=== PATIENT | female | born 1975 | race Hispanic/Latino ===

== ENCOUNTER → 2024-11-13 14:52 | Outpatient (CLI) | payer BC, SELFPAY ==
--- NOTE | 2024-11-13 15:27 | EKG_ITS ---
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
[2024-11-13 15:38] LABS: Add Manual Diff / Slide Review NO; Basophils Absolute Auto 0 /uL (0-100); Basophils Percent Auto 0.6 % (0-2); Eosinophils Absolute Auto 100 /uL (0-450); Eosinophils Percent Auto 1.7 % (2-4); Hematocrit 40.3 % (36-46); Hemoglobin 13.2 g/dL (12.0-16.0); Lymphocytes Absolute Auto 3000 /uL (1100-4500); Lymphocytes Percent Auto 43.4 % (25-40); Mean Corpuscular HGB Conc 32.7 % (30-36); Mean Corpuscular Hemoglobin 29.8 PG (26-34); Mean Corpuscular Volume 91.2 fL (80-100); Monocytes Absolute Auto 600 /uL (0-900); Monocytes Percent Auto 7.9 % (3-14); Neutrophils Absolute Auto 3200 /uL (1500-7000); Neutrophils Percent Auto 46.4 % (50-75); Platelet Count 274 X10^3/uL (150-400); Red Blood Cell Count 4.41 X10^6/uL (4.0-5.2); Red Cell Distribution Width 13.7 % (11.6-14.8)
[2024-11-13 15:48] LABS: Hemoglobin A1C% w Est Avg Glu 5.2 % (4.0-6.0)
[2024-11-13 16:03] LABS: Albumin 4.8 g/dL (3.5-5.0); BUN Creatinine Ratio 31.3 (6-22); Blood Urea Nitrogen 20 mg/dL (7-17); Calcium 9.9 mg/dL (8.4-10.2); Carbon Dioxide 25 mmol/L (22-32); Chloride 104 mmol/L (98-107); Estimated Glomerular Filt Rate > 60 mL/min (>60); Glucose 87 mg/dL (70-100); HEMOLYSIS < 15 (0-50); Potassium 4.1 mmol/L (3.4-5.1); Sodium 139 mmol/L (137-145)
[2024-11-13 16:10] LABS: Prealbumin 37.1 mg/dL (17.6-36.0)
[2024-11-13 16:24] LABS: Vitamin D 25 Hydroxy (D3) 39.7 ng/mL (30.0-100.0)
== END ==
PROVIDERS: PCP Family Medicine; Referring Provider Orthopaedic Surgery Adult Reconstructive Orthopaedic Surgery; Visit Provider Orthopaedic Surgery Adult Reconstructive Orthopaedic Surgery
DX: Z01.818 Encounter for other preprocedural examination (principal); R77.0 Abnormality of albumin; E55.9 Vitamin D deficiency, unspecified; R73.9 Hyperglycemia, unspecified; Z01.812 Encounter for preprocedural laboratory examination
CPT/HCPCS: 36415; 80048; 82040; 82306; 83036; 84134; 85025; 93005

== ENCOUNTER 2025-01-05 11:52 | Day surgery (SDC) | payer OTHER, SELFPAY ==
[2025-01-02 12:03] VITALS: BMI 33.5
[2025-01-05] VITALS (17 sets, daily range): BP systolic 90–139; BP diastolic 45–84; PULSE 74–107; RESP 12–25; TEMP 36–36.6; O2SAT 14–100; BMI 28.6; BMI 33.5
--- NOTE | 2025-01-05 06:00 | DI.RAD.S_ITS ---
PROCEDURE: XR KNEE RT 1TO2V INDICATIONS: tka TECHNIQUE: 2 view(s) of the knee acquired. COMPARISON: [facility], CR, XR KNEE 3 VIEWS RIGHT, 08/05/2024, 4:05. FINDINGS: Bones: Knee arthroplasty in expected position. Soft tissues: Soft tissue edema and gas IMPRESSION: Expected post-operative appearance of a knee arthroplasty. Dictated by: Dat Bermudez M.D. on 01/06/2025 at 13:52 Approved by: Dat Bermudez M.D. on 01/06/2025 at 13:52
[2025-01-05] MEDS: LACTATED RINGERS 1,000 ML 42 ML IV ×2 (12:33→15:54)
[2025-01-05] MEDS: ACETAMINOPHEN 325 MG TABLET 975 MG PO (12:33)
[2025-01-05] MEDS: MELOXICAM 7.5 MG TABLET 15 MG PO (12:33)
--- NOTE | 2025-01-05 13:37 | PM.PREOP ---
Pre-operative Note Interval Note History & Physical reviewed/Exam performed by Physician: Yes Changes to H&P: No
[2025-01-05] MEDS: CEFAZOLIN 2 GM/100 ML PREMIX 100 ML IV ×2 (13:50→22:16)
--- NOTE | 2025-01-05 14:14 | SUR.OPER ---
Supine on padded OR bed. Pillow under head, arms secured on padded armboards <90 degree abduction. Safety belt across torso. Non-operative leg secured with tape over blanket over lower leg. Operative leg secured in DeMayo/Edward/Nathe positioner. Foam padded brace at thigh of operative leg.
[2025-01-05] MEDS: TRANEXAMIC ACID 1,000 MG VIAL 2000 MG INJ ×2 (14:40→15:31)
[2025-01-05] MEDS: ROPIVACAINE/EPI/CLONIDINE/KET 50 ML SYRINGE INJ (14:40)
--- NOTE | 2025-01-05 15:47 | P.OP_ITS ---
Operative Date/Time/Diagnoses Date of procedure: 01/05/25 Pre-op diagnosis: Right knee osteoarthritis secondary to recurrent pa tellofemoral dislocations Post-op diagnosis: same Procedure & Clinicians Procedure: Right total knee arthroplasty Same procedure as scheduled: Yes Surgeon: Roland Mina Cherry Cutter: Deanna Nguyen Anesthesia Type: Spinal, Sedation and Local Operative Notes Estimated Blood Loss (mL): 300 Procedure in detail: Right Gap-Balanced Rony Persona Medial-Congruent Primary Total Knee Arthroplasty Implants: * Size 10 narrow PPS Cruciate Retaining Femoral Component * Size E OsseoTi Tibial Component * Size 10 Medial Congruent Polyethylene Insert * 32 mm cemented Patellar button Procedure Summary: This 49-year-old female patient has a history of numerous patellofemoral dislocations since her youth beginning at age 14. She had severe patellofemoral arthritis and had had multiple opinions from prior surgeons prior to evaluation by me. Recommendations for her had included a tibial tubercle transfer and patellofemoral arthroplasty. I considered patellofemoral arthroplasty in her case however on review of her MRI she had subchondral edema extending down into the tibial plateau both centrally and posteromedially which I felt represented the onset of arthritic changes in her tibiofemoral portion of her knee joint. I therefore recommended total knee arthroplasty which would address the tibiofemoral articulation in addition to the patellofemoral articulation, with the goal being that this would be a definitive surgery and that she would not require additional surgery on this knee which I anticipated would be an inevitability if she had a patellofemoral resurfacing arthroplasty given the subchondral edema already present in the portion of the knee which would be left intact by that surgery. 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 When I made the anterior cut for the 4 in 1 block it barely resected any bone from the anterior cortex but if I had gone down a size I would have notched. On the patellar side my typical practice is to leave the patella unresurfaced however her patella had severe erosive changes, particularly in the inferior aspect of the patella, and had completely lost the convexity of the patella such that there was no protrusion which could articulate with the trochlea of the femoral component. I therefore resurfaced her patella to improve tracking. Given her young age of 49 years I strongly desired to obtain biologic fixation for penitentiary stability of her tibial and femoral components. I prepared a small batch of cement for her patellar component and cemented that in isolation. Her overall alignment was valgus and a posterior lateral release was required to balance the medial and lateral compartments in extension. The tensioner balanced at 7? of external rotation at 90? of flexion and spacer blocks were used to assess the extension and flexion gaps, with a 10 mm block being tight in both prior to the 4 in 1 cut. At the conclusion of the procedure the patella tracked appropriately in the trochlear groove. The patient has been very hesitant to move her knee in the lead up to this surgery and because of this I did not use a tourniquet during today's procedure as I did not want tourniquet associated pain to cause her to be hesitant to move her knee. I also utilized a mid vastus arthrotomy for the same reason. She is [place]-speaking only and I am working to ensure that she will be able to work with a physical therapist that speaks [place] for her postoperative recovery given her movement hesitancy in the lead up to surgery. Procedure in Detail: This patient was seen preoperatively and evaluated for knee pain which was refractory to numerous nonoperative treatment modalities. Their pain correlated with radiographic changes demonstrating significant degeneration in the knee joint. The risks and benefits of continued nonoperative management versus operative management were discussed at length and all of the patient?s questions were answered. Additional educational materials providing further details beyond our discussion in clinic were provided via a publicly available patient education video which included the incidence of medical complications associated with total knee arthroplasty, reasons for revision following total knee arthroplasty, and patient satisfaction rates following total knee arthroplasty. That video can be accessed at [email or web address] . With this understanding of the risks inherent to the procedure, the patient elected to move forward with operative management. Following preoperative optimization, the patient was scheduled for surgery. The patient was met in the preoperative holding area the day of the procedure and all questions were answered. The patient?s nares were swabbed with betadine in order to decolonize them from MRSA. Informed consent was signed and the right limb was marked with indelible ink.? The patient was brought back to the operating room where anesthesia was induced. The patient was transferred to the operating table and all bony prominences were padded. The operative site was prepped and draped in the usual sterile fashion. A second prep stick was utilized following drape placement. The incision was marked corresponding to the medial aspect of the tibial tubercle and the patella. Ioban was wrapped circumferentially around the knee. Prior to incision, tranexamic acid and cefazolin were administered. Templating images were displayed. A timeout procedure was performed verifying the patient?s identity, medical comorbidities, allergies, relevant medications, anesthesia type and the surgical plan. All present were in agreement. The assistance of a physician records management assistant was required for positioning, room setup, soft tissue retraction and wound closure. Without this assistance, the procedure would have been significantly more challenging and time consuming.?? The tourniquet was inflated prior to incision. I made an anterior incision over the knee, dissected through the subcutaneous tissues and identified the lateral border of the VMO. Medial and lateral soft tissue flaps were developed. A medial parapatellar arthrotomy was performed ensuring that adequate capsular tissue would remain for closure at the conclusion of the procedure. The hip was brought into extension and the medial soft tissues were released off the joint line of the tibia. Tissue overlying the distal anterior femur was released to allow for later assessment for anterior notching but left in place. A portion of the retropatellar fat pad was excised while protecting the patellar tendon. The patella was everted. I noted that it was essentially completely flat and elected to resurface it based on this. I measured the thickness at 24 mm and anticipated using a 32 mm button so I positioned it in an everted position and made a saw cut which left a thickness of 15 mm so as to avoid over stuffing. I prepped the patellar button. The patella was released from its everted position.?? I flexed the knee to 90 degrees and placed retractors to allow access to the notch. An opening reamer was used to gain access to the femoral canal and an intramedullary kristopher was introduced into the canal. Diaphyseal fit was obtained in order to allow a distal femoral resection at 5 degrees relative to the anatomic axis, thereby aiming to achieve mechanical alignment of the eventual implant. A +1 resection was planned and assessed using an lele wing. I then made the cut using a sagittal saw. This provided additional access to the femoral notch. The ACL and PCL were excised. Retractors were placed on the lateral and medial tibia. I hyperflexed the knee while externally rotating it to sublux the tibia anteriorly. I placed a PCL retractor posteriorly and used this to provide additional anterior subluxation. The remainder of the PCL root was released. An intramedullary reamer was used in the ACL footprint to provide access to the tibial canal. An extramedullary guide was positioned to allow a resection perpendicular to the anatomic and mechanical axes of the tibia, thereby aiming to achieve mechanical alignment of the eventual implant. A +4 resection off the medial tibia was planned and the tibial cutting jig was pinned in place after I had removed a small amount of remaining cartilage in the medial compartment so as to ensure that I would saw down to subchondral bone. I evaluated the cut depth, varus-valgus alignment and slope of the planned tibial resection and deemed them satisfactory. I cut the tibia with a sagittal saw while using retractors to protect the MCL, patellar tendon, and posterolateral structures.? The knee was repositioned in extension and the Fuzion soft tissue balancing gauge was introduced. This demonstrated that the lateral side was excessively tight relative to the medial side. I therefore used a lamina table operator with the knee in extension to tension the posterolateral capsule and dissected out the posterolateral capsule from the popliteus using a tonsil and cut it sharply. This resulted in improved gap symmetry in extension. The medial and lateral compartments were now symmetric. I moved the knee into 90 degrees of flexion, and the Fuzion device was recalibrated by removing a 9 mm liset to allow assessment of the flexion gap. The Fuzion was placed perpendicular to the resected surface of the tibia and the resected surface of the distal femur. Traction was applied. This externally rotated the femur to 7 degrees. Pins were placed. Appropriate sizing was determined and a 4-in-1 block was placed. This was double checked using the Fuzion device to ensure that it would open to an equal distance as the extension gap when the same amount of force was applied. The Fuzion block was also used to assess flexion gap symmetry. An lele wing was used to ensure there would be no anterior notching. Retractors were placed to protect the soft tissues during resection. Captured cuts were performed with a sagittal saw for the anterior and posterior femur as well as the corresponding chamfers.? Trial components were placed and the construct was assessed. Range of motion was assessed by ensuring the knee could achieve full extension and assessing maximum passive knee flexion by elevating the femur and allowing the heel to passively fall towards the buttock. Gap symmetry was assessed by stressing the medial and lateral compartments in both extension and flexion. Laxity was assessed in both extension and flexion and the polyethylene trial was adjusted with shims as necessary. Patellar tracking was assessed with knee flexion. Once satisfied with the construct, I moved forward with implant insertion. Lug holes were drilled in the femur and the tibia was prepped ensuring appropriate sizing and rotation relative to the tibial tubercle.?? The bony ends were irrigated. I impacted the tibial component into place. Cement was removed. The tibia was reduced underneath the femur. I placed the femoral component as well as the intended polyethylene trial. I brought the knee into extension and manually pressurized the construct. I had a small batch of cement prepared and placed this onto the patella as well as a patellar button. I pressurized this into place. I allowed this to dry. The knee was bathed in a dilute mixture of betadine and peroxide. A mixture of Ropivacaine, Epinephrine, Clonidine and Toradol was infiltrated throughout the soft tissues into structures including the VMO, patellar tendon, quadriceps tendon, MCL and femoral periosteum. A low adductor canal block was also performed using this mixture unless one had been placed preoperatively by anesthesia. The knee was copiously irrigated with pulse lavage. Once cement had been allowed to dry the knee was again trialed. Range of motion was assessed by ensuring the knee could achieve full extension and assessing maximum passive knee flexion by elevating the femur and allowing the heel to passively fall towards the buttock. Gap symme try was assessed by stressing the medial and lateral compartments in both extension and flexion. Laxity was assessed in both extension and flexion and the polyethylene trial was adjusted with shims as necessary. Patellar tracking was assessed with knee flexion. The tourniquet was let down and the polyethylene trial was removed. I inspected the knee inspected for excess cement and any residual bleeding. Once hemostasis was achieved I inserted the final polyethylene and ensured appropriate engagement of the dovetail locking mechanism.?? The arthrotomy was closed with absorbable interrupted suture ensuring that this extended to the top of the arthrotomy. This was backed up with running barbed suture throughout the arthrotomy. The skin was closed with 2-0 and 3-0 sutures. Surgical glue was applied and a soft dressing was placed.?The sponge, instrument and needle counts were reported as being correct at the end of the case.??No obvious complications occurred. The patient was transferred from the operating table back to a stretcher. The patient emerged from anesthesia without difficulty and was taken to the PACU in a stable condition.? Plan for aftercare: * Weightbearing as tolerated * Mobilization as soon as the patient has recovered from anesthesia. If physical therapists are unavailable at the time the patient is ready to ambulate, then nursing staff should help patient ambulate * Aspirin 81 twice per day for DVT prophylaxis * Multimodal pain regimen with no IV opioids ordered * Anticipate discharge home tomorrow * Follow up at [facility] in 2 weeks * Detailed postoperative instructions available at [email or web address]
[2025-01-05] MEDS: ONDANSETRON 4 MG/2 ML INJ IV (16:21)
[2025-01-05] MEDS: hydrOXYzine 50 MG/ML INJ IM (16:21)
[2025-01-05] MEDS: HYDROMORPHONE 1 MG INJ IV ×2 (16:22→16:33)
[2025-01-05] MEDS: OXYCODONE IR 5 MG TABLET PO ×2 (16:27→20:48)
[2025-01-05] MEDS: LACTATED RINGERS 1,000 ML 100 ML IV (17:29)
[2025-01-05] MEDS: ACETAMINOPHEN 325 MG TABLET 650 MG PO ×2 (18:00→22:43)
[2025-01-05] MEDS: methocarbamoL 500 MG TABLET 1000 MG PO (18:22)
--- NOTE | 2025-01-05 18:28 | PC.NURSE ---
Patient arrives from PACU at about 1715 this evening. She is alert, and grimacing and reports pain is severe. She also appears lethargic and falls asleep intermittently. With movement or when awakens she is in tears crying saying mucho dolor or alot of pain. She is given scheduled pain medications and MD notified to give patient robaxin early this evening. Patient 02 sats dropping to 70's in PACU and for now holding further narcotics. Patient appears to be slightly anxious as well. Received one time order for dose of 5mg valium. Upon reassessment patient is sleeping quietly VSS. Daughter is driving from [facility]. and will plan to review admission assessment with patient when she awakens. Continuous monitoring.
[2025-01-05] MEDS: DOCUSATE 100 MG CAPSULE PO (20:47)
[2025-01-05] MEDS: diazePAM 5 MG TABLET PO (20:48)
[2025-01-05] MEDS: IBUPROFEN 600 MG TABLET PO (20:49)
[2025-01-05] MEDS: ASPIRIN EC 81 MG TABLET PO (20:49)
[2025-01-05] MEDS: diphenhydrAMINE 25 MG TABLET PO (22:16)
[2025-01-06 00:15] VITALS: BP 117/68; PULSE 81; RESP 16; TEMP 36.3; O2SAT 98
[2025-01-06] MEDS: OXYCODONE IR 5 MG TABLET PO ×6 (01:56→20:42)
[2025-01-06] MEDS: IBUPROFEN 600 MG TABLET PO ×4 (01:57→20:42)
[2025-01-06 04:30] VITALS: BP 106/62; PULSE 78; RESP 18; TEMP 36.4; O2SAT 98
[2025-01-06] MEDS: ACETAMINOPHEN 325 MG TABLET 650 MG PO ×4 (05:19→23:02)
[2025-01-06] MEDS: CEFAZOLIN 2 GM/100 ML PREMIX 100 ML IV (05:19)
[2025-01-06 07:40] LABS: Hemoglobin 10.1 g/dL (12.0-16.0)
[2025-01-06 08:00] VITALS: BP 105/63; PULSE 81; RESP 18; TEMP 36.3
--- NOTE | 2025-01-06 08:09 | PM.DS.1 ---
History of Present Illness History of Present Illness Date Patient Seen: 01/06/25 Time Patient Seen: 08:09 Chief complaint: Right Total Knee Arthroplasty Narrative: Operative Date/Time/Diagnoses Date of procedure: 01/05/25 Pre-op diagnosis: Right knee osteoarthritis secondary to recurrent patellofemoral dislocations Post-op diagnosis: same Procedure & Clinicians Procedure: Right total knee arthroplasty Same procedure as scheduled: Yes Surgeon: Roland Mina Continuous Process Coffee Roaster: Deanna Nguyen Anesthesia Type: Spinal, Sedation and Local Operative Notes Estimated Blood Loss (mL): 300 Procedure in detail: Right Gap-Balanced Rony Persona Medial-Congruent Primary Total Knee Arthroplasty Implants: Size 10 narrow PPS Cruciate Retaining Femoral Component Size E OsseoTi Tibial Component Size 10 Medial Congruent Polyethylene Insert 32 mm cemented Patellar button Discharge Providers Provider Discharge Date: 01/06/25 Primary care physician: Gala Higgins MD Consults: 01/05/25 06:00 Consult to Anesthesiology Routine Comment: Consulting Provider: Anesthesiologist Reason for consultation: Regional block for post operative pain control 01/05/25 17:18 Consult to Discharge Planning Routine Comment: Consult to Occupational Therapy Evaluate & Treat Comment: Physician Instructions: Evaluate and treat Consult to Physical Therapy Evaluate & Treat Comment: Physician Instructions: postop TKA protocol 01/05/25 20:37 Consult to CIGAR WRAPPER - Neurophysiological Technician Routine Comment: Neurophysiological Technician Consult needed for:: Other reason (Comment) Discharge provider: Deanna Nguyen PA-C Summary Hospital Course Discharge Diagnosis: Right knee osteoarthritis secondary to recurrent patellofemoral dislocations, s/p right total knee arthroplasty with patellar resurfacing Hospital Course: Ms Aviles is Macedonian-speaking only and was interviewed and examined with the help of an audio third-democrat translating service. Her postoperative course was remarkable for difficulty with pain management. On the morning of POD# 1, she was feeling well and expressed a desire to discharge home if better pain control was achieved. She was eating and voiding without difficulty. She had been out of bed to the commode twice during the night and had put very little weight on her right leg. She had not yet worked with PT. Exam Vital Signs (past 8 hours): - 01/06/25 00:15 01/06/25 04:30 Temperature 97.3 F L 97.5 F L Pulse Rate 81 78 Respiratory Rate 16 18 Blood Pressure 117/68 106/62 Pulse Oximetry 98 98 Oxygen Flow Rate 0 0 Oxygen Delivery Method Nasal Cannula Oxygen Flow Rate 0 Narrative Exam Narrative: 5/5 hip flexors, 4/5 quadriceps and hamstrings, 5/5 PF, DF, EHL on right. Sensation to light touch intact throughout RLE, calf soft and compressible. ELIZABETH over Aquacel is CDI. Objective Labs 01/06/25 07:10 Labs: Laboratory Results - last 24 hr 01/06/25 07:10 Hgb 10.1 L Hct 30.0 L PFSH Medical History (Updated 01/02/25 @ 13:21 by Cassie Drew, RN) Patient denies medical problems Osteoarthritis Surgical History (Updated 01/02/25 @ 13:21 by Cassie Drew RN) History of Hx of cholecystectomy Social History household members: children Smoking Status: Never smoker alcohol intake: former Discharge Assessment & Plan Assessment and Plan Assessment: Right knee osteoarthritis secondary to recurrent patellofemoral dislocations, s/p right total knee arthroplasty with patellar resurfacing Plan of Treatment: Discussed w/ pt that if she does well w/ PT today and pain is better controlled, she can go home. I increased her methocarbamol from BID to TID in the hopes this will help. She did have an extensive procedure, so more pain than normal is not unexpected and she may need to stay another night. Continue ASA BID for VTE prophylaxis. Outpt PT and f/u in office as scheduled. Discharge Plan Discharge Plan Patient Disposition: Home Discharge orders & Medications Discharge Orders: Discharge (Order); Ordered 01/06/25 Ordered By: Deanna Nguyen Prescriptions: New methocarbamol 500 mg tablet 1,000 mg PO TID PRN (Reason: muscle spasm) Qty: 90 0RF Continued ibuprofen 200 mg Tablet 400 mg PO BID Discontinued methocarbamol 500 mg Tablet 1,000 mg PO BID Follow up/Referrals: Gala Higgins MD [Primary Care Provider] - Roland Mina MD [Physician] - 01/19/25 9:00 am (Follow up w/ Deanna Nguyen PA-C) Diet/Activity/Treatments Diet: Diet as Tolerated Activity: Weightbearing as tolerated. Walk frequently! Cold/Heat Therapy: Ice to knee as needed for pain. Skin/Wound/Dressing Care Report to your healthcare provider any signs of infection, such as:: chills, fever, night sweats, unusual drainage and unusual redness Dressing: May remove ELIZABETH wrap and cotton padding and shower on 01/07/2025. Leave Aquacel dressing in place until follow up in office. No bathing or otherwise soaking incision. Call the office if the dressing becomes saturated inside. Visit Report/Discharge Packet Instructions: DI for Knee Replacement, DI for Prescription Opioid Use Stand Alone Forms: Patient Portal/API, Surgery Discharge Discharge Data Primary Care Provider: Gala Higgins Attending Provider: Roland Mina
[2025-01-06] MEDS: DOCUSATE 100 MG CAPSULE PO ×2 (08:44→20:27)
[2025-01-06] MEDS: ASPIRIN EC 81 MG TABLET PO ×2 (08:44→20:27)
[2025-01-06] MEDS: methocarbamoL 500 MG TABLET 1000 MG PO ×3 (08:45→20:30)
--- NOTE | 2025-01-06 09:34 | PT.IIE ---
Current Diagnoses Unilateral primary osteoarthritis, right knee (01/05/25) Surgery Performed Operation Date: 01/05/25 13:45 Actual Procedures p Total Knee Arthroplasty(Right) - Roland Mina MD Surgical History (Last Updated 01/02/25 @ 13:21 by Cassie Drew, RN) History of Hx of cholecystectomy Medical History (Last Updated 01/02/25 @ 13:21 by Cassie Drew, RN) Osteoarthritis Patient denies medical problems Physical Therapy Inpatient Evaluation/Re-Eval M1 PT/OT-IP Prior Functional Status Start: 01/06/25 08:09 Freq: NEEDED Status: Active Protocol: Document 01/06/25 10:11 AW (Rec: 01/06/25 10:32 AW [id number]) Medical Review Prior Functional Status Medical History Reviewed Yes Communication 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 This visit is conducted with the assist of remote video cyber crime investigator [employer] ID #[id number] Mobility and Gait Ambulatory without device but with limited tolerance due to knee pain. Slow and crooked. Activities of Daily Living and IADL's Independent with all basic and higher level ADL's. Independent in driving. Social History Household Members children Living Arrangements Apartment/Condo Number of Floors (Floors) One Floor Number of Stairs To Enter/Railing? Level entrance Home Environment Standard Height Toilet,Walk in Shower Home Equipment Front Wheel Walker,Shower Seat without Backrest,Grab Bars Near Toilet,Grab Bars In Shower Additional Social History Comment Has not been able to work recently due to worsening knee pain. M2 PT-IP Current Condition Start: 01/06/25 08:09 Freq: NEEDED Status: Active Protocol: Document 01/06/25 10:11 AW (Rec: 01/06/25 10:32 AW [id number]) Physical Therapy Current Condition Current Condition Evaluation Date 01/06/25 Treatment Diagnosis R TKA; difficulty in walking Onset Date 01/05/25 M3 PT-IP Subjective Start: 01/06/25 08:09 Freq: NEEDED Status: Active Protocol: Document 01/06/25 10:11 AW (Rec: 01/06/25 10:32 AW [id number]) Subjective Physical Therapy Visit Type Type Initial Evaluation Visit Start Time 09:08 Visit Stop Time 09:34 Physical Therapy Visit Comments Patient Comments Pt consents to PT assessment Patient Goals Wants to walk with less pain Therapy Pain Assessment Pain When Pain Assessed During Mobility Pain Present Pain Present Pain Reported Location right knee Intensity 9 Scale Used Numeric (0 - 10) Pain Behaviors Facial Grimacing,Guarding Pain Management Techniques Apply Cold,Timing of Activity with Medications M4 PT-IP Mobility and Gait Start: 01/06/25 08:09 Freq: NEEDED Status: Active Protocol: Document 01/06/25 10:11 AW (Rec: 01/06/25 10:32 AW [id number]) PT-Bed Mobility Assessment Supine to Sit Supine to Sit Contact Guard Assistance Scooting Scooting to Edge of Bed Contact Guard Assistance PT-Transfer Assessment Sit to and From Stand Sit to and from Stand Contact Guard Assistance,Use of Upper Extremities Equipment Transfer Assistive Device Front Wheeled Walker Orthotic/Prosthetic Devices or Brace: No Transfers Transfer Destination Chair,Bedside Commode Transfer Technique Stand Step Pivot Transfer Ability Level of Assist Contact Guard Assistance,1 Person Assistance,Use of Upper Extremities Comments Mobility Comments Pt needs support for her operative limb while transitioning from supine to sit and from stand to sit. She is hesitant to bear much weight on R LE but is able to effectively offload painful R LE using her arms on the walker. Gait Assessment Gait Gait Assistance Required: Contact Guard Assist Distance (Feet) 3 Able to Maintain Weight Bearing Status Yes During Gait Assistive Devices Assistive Device Front Wheeled Walker Gait Deviations General Gait Pattern Antalgic,Decreased Stride Length,Step-to Gait Factors Limiting Gait Function Factors Limiting Gait Function Pain Comments Gait Comments Pain levels are too high to progress to functional gait at this time. Will follow up next session, having taken steps during transfers only during initial evaluation. Stair Climbing Assessment Comments Stair Climbing Comments No stairs at home. PT-Balance Assessment Sitting Balance and Reactions Static Sitting Balance Ability Normal Dynamic Sitting Balance Ability Normal Standing Balance and Reactions Static Standing Balance Ability Good Dynamic Standing Balance Ability Fair Device Used FWW M5 PT-IP Objective Assessments Start: 01/06/25 08:09 Freq: NEEDED Status: Active Protocol: Document 01/06/25 10:11 AW (Rec: 01/06/25 10:32 AW [id number]) Orientation Orientation/Cognition Level of Alertness Alert Orientation Name,Age,Birthday,Month,Date, Year,Day of Week,Place, Situation Language Function Ability No Deficits Noted,Ukrainian as Second Language Safety Awareness Understands Safety Issues Memory Description No Deficits Noted Comments Cognition is not a barrier to PT assessment. Gross Range of Motion Upper Extremity ROM Assessment Within Functional Limits Lower Extremity ROM Assessment Right Impaired Impairments knee grossly 10-60 supine AAROM Strength Upper Extremity Strength Assessment Within Functional Limits Lower Extremity Strength Assessment Left Impaired Knee 3-/5 Comments Strength Comments Pt reports soreness in her soleus, is wearing a bootie to offload pressure in bed and in the chair. Sensation Assessment Sensation Gross Sensation WNL M6 PT-IP Treatment Start: 01/06/25 08:09 Freq: NEEDED Status: Active Protocol: Document 01/06/25 10:11 AW (Rec: 01/06/25 10:32 AW [id number]) Physical Therapy Treatment Exercises Exercises Ankle Pumps,Quad Sets,Heel Slides Knee ROM Measurement 10/60 supine AAROM Education Education Provided Weight Bearing Status,Post-Op Packet,Safety Other Treatments Other Treatment Performed Educated pt on weightbearing status, preferred positioning of the operative limb, recommended activity progression, and basic HEP. Plan to follow up with more extensive HEP education at next session. M7 PT-IP Assessment and Plan Start: 01/06/25 08:09 Freq: NEEDED Status: Active Protocol: Document 01/06/25 10:11 AW (Rec: 01/06/25 10:32 AW [id number]) PT Summary Assessment and Plan Potential Rehabilitation Potential Good Status of Condition at Evaluation Evolving Summary Impairments Pain,ROM,Strength,Balance,Bed Mobility,Transfers,Gait Assessment Summary Di is a 49 yo woman seen for PT evaluation on POD1 following R TKA. She [facility] on the floor last [facility]. She is independent at baseline, does not use any assistive devices but has a FWW and some DME available for home use. She will have her children available to assist her at home. She presents with impairments in strength, transfers, and gait that warrant ongoing acute physical therapy. Hope to progress her to functional gait and a better understanding of the importance of ROM work in the first few weeks of her recovery. PT recommends discharge home with assist once she has met the goals of this plan of care and is medically stable. Further recommend outpatient PT per protocol. Goals Bed Mobility Goal Standby Assistance Transfer Goal Standby Assistance,Front Wheeled Walker Gait Goal Standby Assistance,Front Wheel Walker Gait Distance 50 Days to Meet Goals 3 Frequency of Treatment Frequency Of Treatment Twice a Day Treatment Plan Physical Therapy Treatment Plan Bed Mobility Training,Transfer Training,Gait Training, Therapeutic Exercise,Post Op Education,Discharge Planning, Hot or Cold Pack Other Recommendations and Next Treatment HEP, functional gait, stress Focus importance of ROM Weight Bearing Status Weight Bearing Status Weight Bear as Tolerated Recommendations To Nursing Amount of Assist Needed Standby Assistance,1 Person Assist Discharge Recommendations PT Discharge Recommendations Home with Assistance, Outpatient PT Transportation Needs at Discharge Private Vehicle
--- NOTE | 2025-01-06 12:51 | PT.IPTN ---
Current Diagnoses Unilateral primary osteoarthritis, right knee (01/05/25) Surgery Performed Operation Date: 01/05/25 13:45 Actual Procedures p Total Knee Arthroplasty(Right) - Roland Mina MD Physical Therapy Treatment Note M2 PT-IP Current Condition Start: 01/06/25 08:09 Freq: NEEDED Status: Active Protocol: Document 01/06/25 10:11 AW (Rec: 01/06/25 10:32 AW [id number]) Physical Therapy Current Condition Current Condition Evaluation Date 01/06/25 Treatment Diagnosis R TKA; difficulty in walking Onset Date 01/05/25 M3 PT-IP Subjective Start: 01/06/25 08:09 Freq: NEEDED Status: Active Protocol: Document 01/06/25 12:53 AW (Rec: 01/06/25 13:04 AW [id number]) Subjective Physical Therapy Visit Type Type Treatment Note Visit Start Time 12:20 Visit Stop Time 12:51 Notes This visit is conducted with the assist of remote video japanese interpreter John - ID [id number]. Number of ASSOCIATE PROFESSOR OF MATHEMATICS Visits 0 Physical Therapy Visit Comments Patient Comments Pt has been up to the commode twice since this morning. Pain has been 8/10 at best and 10/ 10 at worst. Patient Goals Get moving. Learn how to take care of her knee. Therapy Pain Assessment Pain When Pain Assessed During Mobility Pain Present Pain Present Pain Reported Location right knee Intensity 10 Scale Used Numeric (0 - 10) Pain Behaviors Facial Grimacing,Guarding Pain Management Techniques Apply Cold,Timing of Activity with Medications M4 PT-IP Mobility and Gait Start: 01/06/25 08:09 Freq: NEEDED Status: Active Protocol: Document 01/06/25 12:53 AW (Rec: 01/06/25 13:04 AW [id number]) PT-Bed Mobility Assessment Sit to Supine Sit to Supine Minimal Assistance PT-Transfer Assessment Sit to and From Stand Sit to and from Stand Contact Guard Assistance,Use of Upper Extremities Equipment Transfer Assistive Device Front Wheeled Walker Transfers Transfer Destination Bed Transfer Technique ambulated with FWW Transfer Ability Level of Assist Contact Guard Assistance,1 Person Assistance,Use of Upper Extremities Comments Mobility Comments Pt continues to require CGA for transfers due to high pain level. Gait Assessment Gait Gait Assistance Required: Standby Assistance,Contact Guard Assist Distance (Feet) 25 Able to Maintain Weight Bearing Status Yes During Gait Assistive Devices Assistive Device Gait Belt,Front Wheeled Walker Gait Deviations General Gait Pattern Antalgic,Decreased Stride Length,Step-to Gait Factors Limiting Gait Function Factors Limiting Gait Function Decreased Strength,Limited Range of Motion,Pain Comments Gait Comments Pt is willing to trial gait as she is hopeful to progress. She does progress from CGA to SBA using FWW. RLE weightbearing increases gradually with distance. Stair Climbing Assessment Comments Stair Climbing Comments No stairs at home. PT-Balance Assessment Sitting Balance and Reactions Static Sitting Balance Ability Normal Dynamic Sitting Balance Ability Normal Standing Balance and Reactions Static Standing Balance Ability Good Dynamic Standing Balance Ability Fair Device Used FWW M5 PT-IP Objective Assessments Start: 01/06/25 08:09 Freq: NEEDED Status: Active Protocol: Document 01/06/25 10:11 AW (Rec: 01/06/25 10:32 AW [id number]) Orientation Orientation/Cognition Level of Alertness Alert Orientation Name,Age,Birthday,Month,Date, Year,Day of Week,Place, Situation Language Function Ability No Deficits Noted,Croatian as Second Language Safety Awareness Understands Safety Issues Memory Description No Deficits Noted Comments Cognition is not a barrier to PT assessment. Gross Range of Motion Upper Extremity ROM Assessment Within Functional Limits Lower Extremity ROM Assessment Right Impaired Impairments knee grossly 10-60 supine AAROM Strength Upper Extremity Strength Assessment Within Functional Limits Lower Extremity Strength Assessment Left Impaired Knee 3-/5 Comments Strength Comments Pt reports soreness in her soleus, is wearing a bootie to offload pressure in bed and in the chair. Sensation Assessment Sensation Gross Sensation WNL M6 PT-IP Treatment Start: 01/06/25 08:09 Freq: NEEDED Status: Active Protocol: Document 01/06/25 12:53 AW (Rec: 01/06/25 13:04 AW [id number]) Physical Therapy Treatment Exercises Exercises Ankle Pumps,Quad Sets,Heel Slides Knee ROM Measurement 10-60 supine AAROM; guarding limits knee flexion Education Education Provided Weight Bearing Status,Safety Other Treatments Other Treatment Performed Continued to reinforce the importance of working on ROM in the acute phase. Also emphasized the importance of frequent short bouts of activity. M7 PT-IP Assessment and Plan Start: 01/06/25 08:09 Freq: NEEDED Status: Active Protocol: Document 01/06/25 12:53 AW (Rec: 01/06/25 13:04 AW [id number]) PT Summary Assessment and Plan Potential Rehabilitation Potential Good Summary Impairments Pain,ROM,Strength,Balance,Bed Mobility,Transfers,Gait Progress Towards Goals Progressing Toward Goals Assessment Summary Di is very attentive to all education and shows good effort with therapeutic activities but remains limited in her mobility tolerance due to 10/10 pain during transfers and gait. PT encourages pt to ambulate 2-3 more times with nursing support today. She has not quite met her PT goals. Anticipate one to two more sessions. Continue to recommend discharge home with family assist and outpatient PT. Goals Bed Mobility Goal Standby Assistance Transfer Goal Standby Assistance,Front Wheeled Walker Gait Goal Standby Assistance,Front Wheel Walker Gait Distance 50 Days to Meet Goals 3 Frequency of Treatment Frequency Of Treatment Twice a Day Treatment Plan Physical Therapy Treatment Plan Bed Mobility Training,Transfer Training,Gait Training, Therapeutic Exercise,Post Op Education,Discharge Planning, Hot or Cold Pack Weight Bearing Status Weight Bearing Status Weight Bear as Tolerated Recommendations To Nursing Amount of Assist Needed 1 Person Assist Discharge Recommendations PT Discharge Recommendations Home with Assistance, Outpatient PT Transportation Needs at Discharge Private Vehicle
--- NOTE | 2025-01-06 15:36 | PC.NURSE ---
Pt has worked with PT twice today, still c/o severe pain. Pt stated that she does not feel ready to d/c yet d/t pain control, and she would also like to work with PT again in the morning. Notified Dr. Pham who is on-call, and ok to cancel d/c order for today.
--- NOTE | 2025-01-06 15:46 | CM.DANOTE ---
Patient is a 49 yo female who was admitted [facility] on 01/05/25 for RTKA. Pt has [employer] for insurance and her PCP is Gala Higgins. EMR was reviewed. Per Ortho PA, pt tolerated procedure well and voiding independently and tolerating diet but having pain management issues. May be stable to d/c today vs tomorrow pending pain. Per PT, pt able to participate in therapy twice today and has good family support but pain issues and RN updated and discharge cancelled for today. PT recommending home with assist and outpt PT. Pt is Lao speaking only and lives in [facility] [facility] with her 21 yo Dtr and 4 yo Dtr and has two other supportive adult children locally who can assist as needed. Pt is independent with ADLs at baseline and has not been using DME for ambulation but her increasing knee pain and hx of chronic knee dislocations has limited her ability to tolerate work and is currently unemployed. Pt preference is to d/c home when stable and hopeful to d/c home tomorrow Sun. Plan: SW to follow closely for plan of d/c home with family support tomorrow Sun if pain managed and outpt f/u and any further discharge planning needs. BETO Heaton Discharge Planning/Care Management Pre-Anesthesia Assessment Start: 01/02/25 12:03 Freq: Status: Active Protocol: Document 01/02/25 12:03 [facility] (Rec: 01/02/25 12:15 CAB [id number]) Pre-Anesthesia Assessment PAC Comment Phone assess 01/02/25 Janitor And Cleaner needed Pt denies any past medical history other than a cholecystectomy and x 3 Patient Information Reviewed Via Phone Assessment Assessment Completed With Methods Study Analyst Comment counter stacker w/Language Exchange [phone] customer code 40 Diagnostic Results BMP/CMP,CBC,EKG Comment Lbs/EKG @ [facility] 11/27/24 Primary Care Provider Gala Higgins Comment Pre-op 11/27/24, clearance form 11/08/24 scanned and in surgery folder Medical Clearance Received Yes Seen Specialist in Last 12 Months Yes Specialist Seen Orthopedist Primary Language Janitor And Cleaner Required Yes Height 152.4 cm Weight 78.018 kg Body Mass Index (BMI) 33.5 Hearing Ability Normal Visual Impairment No Limitations Visual Assist None Dentition Type Teeth, Natural Present,Teeth, Missing Barriers to Learning Language Hx Anesthesia Reactions No Hx Family Anesthesia Reaction No Hx Malignant Hyperthermia No Hx Blood Transfusions Yes: With second Hx Blood Transfusion Reaction No Anesthesia Review Requested No Business Rules Developer No alcohol intake former Smoking Status Never smoker Substance Use Type [#R] does not use Pain Present Pain Reported Musculoskeletal Symptoms Abnormal Gait,Difficulty Walking,Joint Pain History of Falling (Recent or History of Yes ) Patient is completely paralyzed or No completely immobile Mental Status Oriented to own ability Is patient on oxygen? No Does patient have KING/SOB No Hx Sleep Apnea No Currently Taking a Beta Edith No Hx Chest Pain No Hx SOB No Hx Syncope or Dizziness No Anti-Coagulant Therapy No Has a Mobile Heavy Equipment Mechanic No Cardiac Testing No Hx Pacemaker/ICD No Pacemaker Rep Required? No Cardiac Clearance Received No Dysphagia No Gastrointestinal Symptoms None Urinary Catheter Present No Hx Urinary Self Catheterization No Diabetes No HgbA1C 5.2 Date 11/27/24 Patient No Lactating No Hx Drug Resistant Organism No Presence of External or Internal Medical No Devices Comment No Covid-19 symptoms x 8 weeks Marital Status Single Lives With children Current Living Arrangements Apartment/Condo Number of Floors (Floors) One Floor Support System Child/Children Does the Patient Have Assistance After Yes: Children will assist with Surgery care at NH Patient Discharge Plan Description Return Home Comment Pt advised same day surgery per surgeon Feels Safe in Current Environment Yes Been Physically Hurt or Threatened By a No Person in Current Environment Do you have thoughts of harming yourself None or others? Are you currently considering suicide? No Do you have a plan to hurt yourself or No Plan others? Comment Christian Who Can We Speak to About Patient's Care Family, friends Identifying Code for Release of Patient Declines to issue Information Health Care Proxy/Next of Kin Margy (daughter) Health Care Proxy Emergency Contact Name Margy (daughter) Emergency Contact Advance Directives? No Power of Sample Tester No PAC Instructions Assistance for 24 hours post- op,Do not shave/clip surgical site,Durable medical equipment ,Medications to take/avoid,No ETOH/petroleum product on skin DOS,NPO,Post-op transportation,Pre-surgical wash,Sturdy shoes/comfortable clothes,Do not bring valuables and remove jewelry
[2025-01-06] MEDS: TRAMADOL 50 MG TABLET PO (18:41)
[2025-01-06 20:00] VITALS: BP 104/61; PULSE 89; RESP 14; TEMP 36.8; O2SAT 96
[2025-01-07] MEDS: OXYCODONE IR 5 MG TABLET PO ×4 (00:29→15:35)
[2025-01-07] MEDS: IBUPROFEN 600 MG TABLET PO ×3 (02:02→15:36)
[2025-01-07] MEDS: ACETAMINOPHEN 325 MG TABLET 650 MG PO ×2 (04:38→11:52)
[2025-01-07 08:00] VITALS: BP 111/72; PULSE 93; RESP 16; TEMP 36.5; O2SAT 99
[2025-01-07] MEDS: ASPIRIN EC 81 MG TABLET PO (08:32)
[2025-01-07] MEDS: DOCUSATE 100 MG CAPSULE PO (08:33)
--- NOTE | 2025-01-07 08:58 | PT.IPTN ---
Current Diagnoses Unilateral primary osteoarthritis, right knee (01/05/25) Surgery Performed Operation Date: 01/05/25 13:45 Actual Procedures p Total Knee Arthroplasty(Right) - Roland Mina MD Physical Therapy Treatment Note M2 PT-IP Current Condition Start: 01/06/25 08:09 Freq: NEEDED Status: Active Protocol: Document 01/06/25 10:11 AW (Rec: 01/06/25 10:32 AW [id number]) Physical Therapy Current Condition Current Condition Evaluation Date 01/06/25 Treatment Diagnosis R TKA; difficulty in walking Onset Date 01/05/25 M3 PT-IP Subjective Start: 01/06/25 08:09 Freq: NEEDED Status: Active Protocol: Document 01/07/25 08:15 MB (Rec: 01/07/25 08:57 MB [id number]) Subjective Physical Therapy Visit Type Type Treatment Note Visit Start Time 08:15 Visit Stop Time 08:45 Notes Information Assurance Engineer [id number], Sherrie Number of SOAKER HELPER Visits 0 Physical Therapy Visit Comments Patient Comments Pt reports 10/10 right knee pain. Therapy Pain Assessment Pain When Pain Assessed During Mobility Pain Present Pain Present Pain Reported Location right knee Intensity 10 Scale Used Numeric (0 - 10) Pain Behaviors Facial Grimacing,Guarding Pain Management Techniques Apply Cold,Distraction,Re- positioning M4 PT-IP Mobility and Gait Start: 01/06/25 08:09 Freq: NEEDED Status: Active Protocol: Document 01/07/25 08:15 MB (Rec: 01/07/25 08:57 MB [id number]) PT-Transfer Assessment Sit to and From Stand Sit to and from Stand Contact Guard Assistance,Use of Upper Extremities Equipment Transfer Assistive Device Front Wheeled Walker Transfers Transfer Destination Chair,Toilet Transfer Technique ambulated with FWW Transfer Ability Level of Assist Contact Guard Assistance,1 Person Assistance,Use of Upper Extremities Comments Mobility Comments Pt is getting up to EOB with SALESPERSON JEWELRY upon arrival. Pt continues to require CGA for transfers due to high pain level. Gait Assessment Gait Gait Assistance Required: Standby Assistance,1 Person Assist Distance (Feet) 20 Able to Maintain Weight Bearing Status Yes During Gait Assistive Devices Assistive Device Gait Belt,Front Wheeled Walker Gait Deviations General Gait Pattern Antalgic,Decreased Stride Length,Step-to Gait Factors Limiting Gait Function Factors Limiting Gait Function Decreased Strength,Limited Range of Motion,Pain Comments Gait Comments 20'x1, 20'x1, 10'x1 gait in room with RW, pt requires superv for hygiene after toileting and set-up for brushing teeth at sink Stair Climbing Assessment Comments Stair Climbing Comments No stairs at home. PT-Balance Assessment Sitting Balance and Reactions Static Sitting Balance Ability Normal Dynamic Sitting Balance Ability Normal Standing Balance and Reactions Static Standing Balance Ability Good Dynamic Standing Balance Ability Fair Device Used FWW M5 PT-IP Objective Assessments Start: 01/06/25 08:09 Freq: NEEDED Status: Active Protocol: Document 01/06/25 10:11 AW (Rec: 01/06/25 10:32 AW [id number]) Orientation Orientation/Cognition Level of Alertness Alert Orientation Name,Age,Birthday,Month,Date, Year,Day of Week,Place, Situation Language Function Ability No Deficits Noted,Turkmen as Second Language Safety Awareness Understands Safety Issues Memory Description No Deficits Noted Comments Cognition is not a barrier to PT assessment. Gross Range of Motion Upper Extremity ROM Assessment Within Functional Limits Lower Extremity ROM Assessment Right Impaired Impairments knee grossly 10-60 supine AAROM Strength Upper Extremity Strength Assessment Within Functional Limits Lower Extremity Strength Assessment Left Impaired Knee 3-/5 Comments Strength Comments Pt reports soreness in her soleus, is wearing a bootie to offload pressure in bed and in the chair. Sensation Assessment Sensation Gross Sensation WNL M6 PT-IP Treatment Start: 01/06/25 08:09 Freq: NEEDED Status: Active Protocol: Document 01/07/25 08:15 MB (Rec: 01/07/25 08:57 MB [id number]) Physical Therapy Treatment Exercises Exercises Ankle Pumps,Gluteal Sets,Quad Sets,Heel Slides Knee ROM Measurement Pt guards right knee today and limited flexion Education Education Provided Weight Bearing Status,Safety M7 PT-IP Assessment and Plan Start: 01/06/25 08:09 Freq: NEEDED Status: Active Protocol: Document 01/07/25 08:15 MB (Rec: 01/07/25 08:57 MB [id number]) PT Summary Assessment and Plan Potential Rehabilitation Potential Good Status of Condition at Evaluation Evolving Summary Impairments Pain,ROM,Strength,Balance,Bed Mobility,Transfers,Gait Progress Towards Goals Progressing Toward Goals Assessment Summary Di has high pain this morning and makes a good effort with mobility. Her right LE is edematous and she has limited ROM d/t pain and swelling. Goals Bed Mobility Goal Independent Transfer Goal Independent,Front Wheeled Walker Gait Goal Independent,Front Wheel Walker Gait Distance 50 Days to Meet Goals 3 Frequency of Treatment Frequency Of Treatment Twice a Day Treatment Plan Physical Therapy Treatment Plan Bed Mobility Training,Transfer Training,Gait Training, Therapeutic Exercise,Post Op Education,Discharge Planning, Hot or Cold Pack Weight Bearing Status Weight Bearing Status Weight Bear as Tolerated Recommendations To Nursing Amount of Assist Needed 1 Person Assist Discharge Recommendations PT Discharge Recommendations Home with Assistance, Outpatient PT Transportation Needs at Discharge Private Vehicle
--- NOTE | 2025-01-07 09:53 | P.PN_ITS ---
Subjective Subjective Date Patient Seen: 01/07/25 Time Patient Seen: 09:53 Interval history: She is continuing to have significant problems with postop pain management. She has been out of bed to a bathroom. She notes pain up to level 10. She is gotten some benefit from oxycodone ibuprofen and a muscle relaxant. Exam Vital Signs (past 8 hours): - 01/07/25 08:00 Temperature 97.7 F Pulse Rate 93 H Respiratory Rate 16 Blood Pressure 111/72 Pulse Oximetry 99 Oxygen Flow Rate 0 Oxygen Delivery Method Nasal Cannula Oxygen Flow Rate 0 Narrative Exam Narrative: She was resting comfortably in bed, she has a weak straight leg raise, she has a moderate bruising along the medial aspect of her knee, her dressings intact, her calf is soft, she is neurologically intact distally Objective Labs 01/06/25 07:10 PFSH Medical History (Updated 01/02/25 @ 13:21 by Cassie Drew RN) Patient denies medical problems Osteoarthritis Surgical History (Updated 01/02/25 @ 13:21 by Cassie Drew RN) History of Hx of cholecystectomy Social History household members: children Smoking Status: Never smoker alcohol intake: former Assessment & Plan Post-op Postoperative Procedures: Procedures Operation Date: 01/05/25 13:45 Actual Procedure Side Surgeon p Total Knee Arthroplasty Right Roland Mina MD Postoperative day: 2 Postoperative status: marginal pain control Postoperative status narrative: Doing well clinically but still is having pain control issues. I talked to the nurse and we decided we could try a single dose Dilaudid orally to see if it is any better. Postoperative plan: discharge Postoperative plan narrative: I think it is reasonable to discharge her to home today. We went over discharge plan with a Citizen [place] remote safety glass installer. I encouraged her to work on progressive range of motion and strengthening and to make sure that she keeps ambulating. Time Spent With Patient Time with patient: 15-24 minutes
[2025-01-07] MEDS: methocarbamoL 500 MG TABLET 1000 MG PO (09:58)
--- NOTE | 2025-01-07 10:27 | PC.NURSE ---
Dr. Pham in and rounded on patient. She has ordered Dilaudid for patient to see if this works better for her pain management. The oxycodone and muscle relaxer takes the edge off of her discomfort but she is still having some pain, both of these were just given to patient. has written for some dilaudid to try, then will call her to let her know how it works. Plan is to discharge patient home today later on. Patients dressing is cdi, and patient is sitting up in her chair, she worked with physical therapy and tolerated this well.
[2025-01-07] MEDS: HYDROMORPHONE 2 MG TABLET PO (11:52)
--- NOTE | 2025-01-07 12:32 | CM.DPC ---
DCP Discharge Home Per Ortho MD, pt with some ongoing pain issues but has been able to work with PT and adding PO dilaudid today for plan of d/c home this afternoon if pain managed. Per PT, still recommending home with family assist and outpt PT. Plan: SW to follow for plan of discharge home this afternoon via family POV and outpt f/u if pain adequately controlled. BETO Heaton
== END 2025-01-07 16:43 | disposition home or self-care (01) ==
LOC: OR 11:54 → AC 11:55
PROVIDERS: PCP Family Medicine; Referring Provider Orthopaedic Surgery Adult Reconstructive Orthopaedic Surgery; Visit Provider Orthopaedic Surgery Adult Reconstructive Orthopaedic Surgery
PROC: 0SRC0JZ Replacement of Right Knee Joint with Synthetic Substitute, Open Approach (ICD-10-PCS; CPT 27447; principal; 2025-01-05 13:45)
DX: M17.11 Unilateral primary osteoarthritis, right knee (principal)
CPT/HCPCS: 27447; 36415; 73560; 85014; 85018; 97110; 97116; 97161; 97530; C1776; C1713; J0690; J1100; J1171; J1885; J2250; J2405; J2704; J3010; J3410; J3490